=== PATIENT | female | born 1970 | race African-American/Black ===

== ENCOUNTER 2019-04-09 15:45 | Inpatient (IN) | payer OTHER, MEDICAID ==
[~2019-04-09] VITALS: Ht 170.2 cm; Wt 149.8 kg
[2019-04-09] MEDS ORDERED: CARV25TA47 MT (16:11)
[2019-04-09] MEDS ORDERED: LISI-604 MT (16:11)
[2019-04-09] MEDS ORDERED: FURO20TA4 PO (16:11)
[2019-04-09] MEDS ORDERED: WARF-53 PO (16:11)
[2019-04-09] MEDS ORDERED: ATOR20TA65 MT (16:11)
[2019-04-09] MEDS ORDERED: METOPROLOL TARTRATE 5MG/5ML VIAL IV SCH (23:00)
[2019-04-09] MEDS ORDERED: FUROSEMIDE 40MG/4ML VIAL IVP SCH (23:00)
[2019-04-09 23:08] LABS: BASOPHILS % 0.5 % (0.0-2.0); EOSINOPHILS % 5.5 % (0.0-5.0); HEMATOCRIT. 38.7 % (36.0-48.0); HEMOGLOBIN. 11.7 g/dL (12.0-16.0); LYMPHOCYTES % 17.3 % (20.0-50.0); MEAN CORPUSCULAR HEMOGLOBIN 23.1 pg (28.0-32.0); MEAN CORPUSCULAR VOLUME 76.1 fL (81.0-99.0); MEAN PLATELET VOLUME 10.9 fl (7.4-10.4); MONOCYTES % 7.2 % (2.0-8.0); NEUTROPHILS % 69.5 % (40.0-76.0); PLATELET 167 x1000/uL (130-400); RED BLOOD CELL COUNT 5.08 mill/uL (4.2-5.4); RED CELL DISTRIBUTION WIDTH 18.9 % (11.6-14.6)
[2019-04-09 23:14] LABS: CHLORIDE 99 mEq/L (98-107)
[2019-04-09 23:27] LABS: INR 2.7; PROTHROMBIN TIME 26.5 sec (9.6-11.0)
[2019-04-10] MEDS: METOPROLOL TARTRATE 5MG/5ML VIAL IV SCH ×3 (00:56→01:27)
[2019-04-10] MEDS ORDERED: POTASSIUM CHLORIDE 20MEQ TABLET SR PO ONE (04:45)
[2019-04-10 08:00] VITALS: BP 136/70
[2019-04-10] MEDS ORDERED: CLONIDINE 0.1MG TABLET PO PRN (08:30)
[2019-04-10] MEDS ORDERED: WARFARIN SODIUM 5MG TABLET PO SCH (08:30)
[2019-04-10 08:52] VITALS: BP 136/70
[2019-04-10] MEDS: HYDROCODONE/ACETAMINOPHEN 5/325MG TABLET PO PRN (08:57)
[2019-04-10] MEDS: ATORVASTATIN CALCIUM 20MG TABLET PO SCH (08:57)
[2019-04-10] MEDS: LISINOPRIL 20MG TABLET PO SCH (08:57)
[2019-04-10] MEDS ORDERED: HYDROCODONE/ACETAMINOPHEN 5/325MG TABLET PO PRN (11:45)
[2019-04-10] MEDS ORDERED: MAGNESIUM/ALUMINUM HYDROXIDE/SIMETHICONE 30ML UDC PO PRN (11:45)
[2019-04-10] MEDS ORDERED: DIPHENHYDRAMINE 50MG/ML VIAL IV PRN (11:45)
[2019-04-10] MEDS ORDERED: DOCUSATE SODIUM 100MG CAPSULE PO PRN (11:45)
[2019-04-10 12:06] LABS: BASOPHILS % 0.7 % (0.0-2.0); EOSINOPHILS % 5.8 % (0.0-5.0); HEMATOCRIT. 35.5 % (36.0-48.0); HEMOGLOBIN. 10.9 g/dL (12.0-16.0); LYMPHOCYTES % 16.1 % (20.0-50.0); MEAN CORPUSCULAR VOLUME 75.1 fL (81.0-99.0); MEAN PLATELET VOLUME 10.7 fl (7.4-10.4); MONOCYTES % 9.9 % (2.0-8.0); NEUTROPHILS % 67.5 % (40.0-76.0); PLATELET 163 x1000/uL (130-400); RED BLOOD CELL COUNT 4.73 mill/uL (4.2-5.4); RED CELL DISTRIBUTION WIDTH 18.4 % (11.6-14.6)
[2019-04-10 12:10] VITALS: BP 112/55
[2019-04-10 12:20] LABS: INR 2.7; PROTHROMBIN TIME 26.8 sec (9.6-11.0)
[2019-04-10 12:35] LABS: CHLORIDE 103 mEq/L (98-107)
[2019-04-10 12:41] LABS: PHOSPHORUS 3.2 mg/dL (2.5-4.9)
[2019-04-10] MEDS ORDERED: POTASSIUM CHLORIDE INJ 40 MEQ in DEXT 5% WATER 250 ML IV ONE (15:00)
[2019-04-10] MEDS ORDERED: FUROSEMIDE 40MG/4ML VIAL IVP SCH (15:00)
[2019-04-10] MEDS: CARVEDILOL 12.5MG TABLET PO SCH ×2 (15:46→21:43)
[2019-04-10 16:07] VITALS: BP 117/73
[2019-04-10] MEDS: FUROSEMIDE 40MG/4ML VIAL IVP SCH (16:17)
[2019-04-10] MEDS ORDERED: WARFARIN SODIUM 7.5MG TABLET PO NR (18:00)
[2019-04-10 20:00] VITALS: BP 110/62
[2019-04-10] MEDS ORDERED: POTASSIUM CHLORIDE 20MEQ TABLET SR PO NR (21:00)
[2019-04-11] VITALS: BP 100/55
[2019-04-11 00:52] LABS: *AMPHETAMINES SCREEN URINE NEGATIVE (NEGATIVE); *BARBITURATES SCREEN URINE NEGATIVE (NEGATIVE); *BENZODIAZEPINES SCREEN URINE NEGATIVE (NEGATIVE); *COCAINE SCREEN URINE NEGATIVE (NEGATIVE); CANNABINOID URINE SCREEN NEGATIVE (NEGATIVE); METHADONE URINE SCREEN NEGATIVE (NEGATIVE); OPIATES URINE SCREEN PRESUMTIVE POSITIVE (NEGATIVE); PHENCYCLIDINE URINE SCREEN NEGATIVE (NEGATIVE)
[2019-04-11 04:00] VITALS: BP 115/72
[2019-04-11 06:56] LABS: BASOPHILS % 0.7 % (0.0-2.0); EOSINOPHILS % 5.7 % (0.0-5.0); HEMATOCRIT. 35.4 % (36.0-48.0); LYMPHOCYTES % 20.3 % (20.0-50.0); MEAN CORPUSCULAR HEMOGLOBIN 23.4 pg (28.0-32.0); MEAN CORPUSCULAR VOLUME 75.1 fL (81.0-99.0); MEAN PLATELET VOLUME 10.3 fl (7.4-10.4); NEUTROPHILS % 64.3 % (40.0-76.0); PLATELET 145 x1000/uL (130-400); RED BLOOD CELL COUNT 4.71 mill/uL (4.2-5.4); RED CELL DISTRIBUTION WIDTH 18.6 % (11.6-14.6)
[2019-04-11 07:00] LABS: INR 2.8; PROTHROMBIN TIME 27.4 sec (9.6-11.0)
[2019-04-11 07:39] LABS: PHOSPHORUS 3.3 mg/dL (2.5-4.9)
[2019-04-11 08:00] VITALS: BP 111/65
[2019-04-11] MEDS ORDERED: POTASSIUM CHLORIDE 20MEQ TABLET SR PO SCH (09:00)
[2019-04-11] MEDS: FUROSEMIDE 40MG/4ML VIAL IVP SCH ×2 (09:02→17:28)
[2019-04-11] MEDS: ATORVASTATIN CALCIUM 20MG TABLET PO SCH (09:02)
[2019-04-11] MEDS: LISINOPRIL 20MG TABLET PO SCH (09:02)
[2019-04-11] MEDS: CARVEDILOL 12.5MG TABLET PO SCH ×2 (09:02→20:50)
[2019-04-11] MEDS: ACETAMINOPHEN 325MG TABLET PO PRN (09:20)
[2019-04-11 12:00] VITALS: BP 104/76
[2019-04-11] MEDS ORDERED: POTASSIUM CHLORIDE 20MEQ TABLET SR PO NR (12:45)
[2019-04-11] MEDS: DILTIAZEM HCL 60MG TABLET PO SCH ×2 (14:45→22:00)
[2019-04-11 16:00] VITALS: BP 122/56
[2019-04-11] MEDS: POTASSIUM CHLORIDE 20MEQ TABLET SR PO SCH (17:28)
[2019-04-11] MEDS: HYDROCODONE/ACETAMINOPHEN 5/325MG TABLET PO PRN (17:28)
[2019-04-11] MEDS: NEOMY SULF/BACITRAC ZN/POLY OINT 28GM TOP SCH (17:30)
[2019-04-11] MEDS ORDERED: WARFARIN SODIUM 5MG TABLET PO NR (18:00)
[2019-04-11 20:00] VITALS: BP 109/71
[2019-04-12] VITALS: BP 124/76
[2019-04-12 04:00] VITALS: BP 117/81
[2019-04-12] MEDS: DILTIAZEM HCL 60MG TABLET PO SCH ×3 (05:10→18:11)
[2019-04-12 07:49] LABS: BASOPHILS % 0.9 % (0.0-2.0); EOSINOPHILS % 5.6 % (0.0-5.0); HEMATOCRIT. 37.2 % (36.0-48.0); HEMOGLOBIN. 11.6 g/dL (12.0-16.0); LYMPHOCYTES % 17.4 % (20.0-50.0); MEAN CORPUSCULAR HEMOGLOBIN 23.4 pg (28.0-32.0); MEAN PLATELET VOLUME 10.3 fl (7.4-10.4); MONOCYTES % 8.4 % (2.0-8.0); NEUTROPHILS % 67.7 % (40.0-76.0); PLATELET 167 x1000/uL (130-400); RED BLOOD CELL COUNT 4.96 mill/uL (4.2-5.4); RED CELL DISTRIBUTION WIDTH 18.5 % (11.6-14.6)
[2019-04-12 07:50] LABS: INR 3.1; PROTHROMBIN TIME 30.3 sec (9.6-11.0)
[2019-04-12 08:00] VITALS: BP 116/77
[2019-04-12] MEDS: ATORVASTATIN CALCIUM 20MG TABLET PO SCH (09:21)
[2019-04-12] MEDS: POTASSIUM CHLORIDE 20MEQ TABLET SR PO SCH ×2 (09:21→18:11)
[2019-04-12] MEDS: CARVEDILOL 12.5MG TABLET PO SCH ×2 (09:22→20:41)
[2019-04-12] MEDS: FUROSEMIDE 40MG/4ML VIAL IVP SCH ×2 (09:22→18:11)
[2019-04-12] MEDS: LISINOPRIL 20MG TABLET PO SCH (09:23)
[2019-04-12] MEDS: NEOMY SULF/BACITRAC ZN/POLY OINT 28GM TOP SCH (09:31)
[2019-04-12 12:00] VITALS: BP 101/63
[2019-04-12] MEDS: SPIRONOLACTONE 25MG TABLET PO SCH (12:30)
[2019-04-12 16:00] VITALS: BP 120/78
[2019-04-12] MEDS: ACETAMINOPHEN 325MG TABLET PO PRN (18:11)
[2019-04-12 20:00] VITALS: BP 105/48
[2019-04-13] VITALS: BP 117/62
[2019-04-13] MEDS: DILTIAZEM HCL 60MG TABLET PO SCH ×5 (00:04→23:52)
[2019-04-13 04:30] VITALS: BP 105/68
[2019-04-13 07:17] LABS: BASOPHILS % 0.7 % (0.0-2.0); EOSINOPHILS % 5.2 % (0.0-5.0); HEMATOCRIT. 34.5 % (36.0-48.0); HEMOGLOBIN. 10.7 g/dL (12.0-16.0); LYMPHOCYTES % 14.6 % (20.0-50.0); MEAN CORPUSCULAR HEMOGLOBIN 23.3 pg (28.0-32.0); MEAN CORPUSCULAR VOLUME 75.3 fL (81.0-99.0); MEAN PLATELET VOLUME 10.9 fl (7.4-10.4); MONOCYTES % 9.9 % (2.0-8.0); NEUTROPHILS % 69.6 % (40.0-76.0); PLATELET 162 x1000/uL (130-400); RED BLOOD CELL COUNT 4.59 mill/uL (4.2-5.4); RED CELL DISTRIBUTION WIDTH 18.7 % (11.6-14.6)
[2019-04-13 07:24] LABS: CHLORIDE 102 mEq/L (98-107)
[2019-04-13 07:40] LABS: INR 2.8; PROTHROMBIN TIME 27.6 sec (9.6-11.0)
[2019-04-13 08:00] VITALS: BP 118/70
[2019-04-13] MEDS: SPIRONOLACTONE 25MG TABLET PO SCH (08:51)
[2019-04-13] MEDS: LISINOPRIL 20MG TABLET PO SCH (08:51)
[2019-04-13] MEDS: POTASSIUM CHLORIDE 20MEQ TABLET SR PO SCH ×2 (08:51→17:55)
[2019-04-13] MEDS: CARVEDILOL 12.5MG TABLET PO SCH ×2 (08:51→21:00)
[2019-04-13] MEDS: FUROSEMIDE 40MG/4ML VIAL IVP SCH ×2 (08:52→17:55)
[2019-04-13] MEDS: NEOMY SULF/BACITRAC ZN/POLY OINT 28GM TOP SCH (08:52)
[2019-04-13] MEDS: ATORVASTATIN CALCIUM 20MG TABLET PO SCH (08:52)
[2019-04-13 12:00] VITALS: BP 105/68
[2019-04-13] MEDS: ACETAMINOPHEN 325MG TABLET PO PRN (12:09)
[2019-04-13 16:00] VITALS: BP_SYST 104; BP_SYST 106; BP_SYST 109; BP_DIAS 68; BP_DIAS 71; BP_DIAS 78
[2019-04-13] MEDS ORDERED: WARFARIN SODIUM 3MG TABLET PO SCH (18:00)
[2019-04-13 20:27] VITALS: BP 99/62
[2019-04-13] MEDS: HYDROCODONE/ACETAMINOPHEN 5/325MG TABLET PO PRN (23:53)
[2019-04-14] VITALS (11 sets, daily range): BP systolic 96–145; BP diastolic 63–88
[2019-04-14] MEDS: DILTIAZEM HCL 60MG TABLET PO SCH ×3 (05:27→17:41)
[2019-04-14 06:24] LABS: INR 2.3; PROTHROMBIN TIME 22.4 sec (9.6-11.0)
[2019-04-14 06:34] LABS: CHLORIDE 102 mEq/L (98-107)
[2019-04-14 06:51] LABS: BASOPHILS % 0.6 % (0.0-2.0); EOSINOPHILS % 5.7 % (0.0-5.0); HEMATOCRIT. 36.1 % (36.0-48.0); HEMOGLOBIN. 11.2 g/dL (12.0-16.0); LYMPHOCYTES % 18.5 % (20.0-50.0); MEAN CORPUSCULAR HEMOGLOBIN 23.5 pg (28.0-32.0); MEAN CORPUSCULAR VOLUME 75.4 fL (81.0-99.0); MEAN PLATELET VOLUME 10.9 fl (7.4-10.4); MONOCYTES % 8.7 % (2.0-8.0); NEUTROPHILS % 66.5 % (40.0-76.0); PLATELET 166 x1000/uL (130-400); RED BLOOD CELL COUNT 4.79 mill/uL (4.2-5.4); RED CELL DISTRIBUTION WIDTH 18.6 % (11.6-14.6)
[2019-04-14] MEDS: FUROSEMIDE 40MG/4ML VIAL IVP SCH ×2 (08:37→17:42)
[2019-04-14] MEDS: SPIRONOLACTONE 25MG TABLET PO SCH (08:38)
[2019-04-14] MEDS: ATORVASTATIN CALCIUM 20MG TABLET PO SCH (08:38)
[2019-04-14] MEDS: POTASSIUM CHLORIDE 20MEQ TABLET SR PO SCH ×2 (08:38→17:44)
[2019-04-14] MEDS: CARVEDILOL 12.5MG TABLET PO SCH ×2 (08:39→21:49)
[2019-04-14] MEDS: NEOMY SULF/BACITRAC ZN/POLY OINT 28GM TOP SCH (08:39)
[2019-04-14] MEDS: LISINOPRIL 20MG TABLET PO SCH (08:39)
[2019-04-14] MEDS ORDERED: WARFARIN SODIUM 4MG TABLET PO NR (18:00)
[2019-04-14] MEDS: HYDROCODONE/ACETAMINOPHEN 5/325MG TABLET PO PRN (21:50)
[2019-04-15] VITALS (8 sets, daily range): BP systolic 95–122; BP diastolic 55–77
[2019-04-15] MEDS: DILTIAZEM HCL 60MG TABLET PO SCH ×4 (05:24→16:36)
[2019-04-15 07:51] LABS: BASOPHILS % 0.7 % (0.0-2.0); EOSINOPHILS % 5.4 % (0.0-5.0); HEMATOCRIT. 34.9 % (36.0-48.0); HEMOGLOBIN. 10.8 g/dL (12.0-16.0); LYMPHOCYTES % 17.3 % (20.0-50.0); MEAN CORPUSCULAR HEMOGLOBIN 23.3 pg (28.0-32.0); MEAN CORPUSCULAR VOLUME 75.5 fL (81.0-99.0); MEAN PLATELET VOLUME 10.3 fl (7.4-10.4); MONOCYTES % 10.3 % (2.0-8.0); NEUTROPHILS % 66.3 % (40.0-76.0); PLATELET 153 x1000/uL (130-400); RED BLOOD CELL COUNT 4.62 mill/uL (4.2-5.4); RED CELL DISTRIBUTION WIDTH 18.7 % (11.6-14.6)
[2019-04-15 07:58] LABS: PROTHROMBIN TIME 19.7 sec (9.6-11.0)
[2019-04-15 08:00] LABS: CHLORIDE 102 mEq/L (98-107)
[2019-04-15] MEDS: SPIRONOLACTONE 25MG TABLET PO SCH (09:10)
[2019-04-15] MEDS: NEOMY SULF/BACITRAC ZN/POLY OINT 28GM TOP SCH (09:10)
[2019-04-15] MEDS: CARVEDILOL 12.5MG TABLET PO SCH ×2 (09:10→21:57)
[2019-04-15] MEDS: ATORVASTATIN CALCIUM 20MG TABLET PO SCH (09:10)
[2019-04-15] MEDS: FUROSEMIDE 40MG/4ML VIAL IVP SCH ×2 (09:10→16:32)
[2019-04-15] MEDS: POTASSIUM CHLORIDE 20MEQ TABLET SR PO SCH ×2 (09:11→16:32)
[2019-04-15] MEDS: LISINOPRIL 20MG TABLET PO SCH (09:11)
[2019-04-15] MEDS ORDERED: METOLAZONE 2.5MG TABLET PO NR (14:00)
[2019-04-15] MEDS: ACETAMINOPHEN 325MG TABLET PO PRN (17:08)
[2019-04-15] MEDS ORDERED: WARFARIN SODIUM 4MG TABLET PO SCH (18:00)
[2019-04-16] VITALS (9 sets, daily range): BP systolic 95–124; BP diastolic 49–80
[2019-04-16] MEDS: ACETAMINOPHEN 325MG TABLET PO PRN ×3 (02:00→22:52)
[2019-04-16] MEDS: DILTIAZEM HCL 60MG TABLET PO SCH ×4 (02:00→18:27)
[2019-04-16 07:03] LABS: INR 2.1; PROTHROMBIN TIME 20.7 sec (9.6-11.0)
[2019-04-16 07:09] LABS: BASOPHILS % 0.6 % (0.0-2.0); EOSINOPHILS % 6.6 % (0.0-5.0); HEMATOCRIT. 35.1 % (36.0-48.0); HEMOGLOBIN. 11.1 g/dL (12.0-16.0); LYMPHOCYTES % 17.9 % (20.0-50.0); MEAN CORPUSCULAR HEMOGLOBIN 23.7 pg (28.0-32.0); MEAN CORPUSCULAR VOLUME 75.2 fL (81.0-99.0); MEAN PLATELET VOLUME 11.4 fl (7.4-10.4); NEUTROPHILS % 65.9 % (40.0-76.0); PLATELET 184 x1000/uL (130-400); RED BLOOD CELL COUNT 4.67 mill/uL (4.2-5.4); RED CELL DISTRIBUTION WIDTH 18.8 % (11.6-14.6)
[2019-04-16] MEDS ORDERED: METOLAZONE 2.5MG TABLET PO SCH (09:00)
[2019-04-16] MEDS: SPIRONOLACTONE 25MG TABLET PO SCH (09:39)
[2019-04-16] MEDS: LISINOPRIL 20MG TABLET PO SCH (09:39)
[2019-04-16] MEDS: CARVEDILOL 12.5MG TABLET PO SCH ×2 (09:39→21:00)
[2019-04-16] MEDS: NEOMY SULF/BACITRAC ZN/POLY OINT 28GM TOP SCH (09:40)
[2019-04-16] MEDS: POTASSIUM CHLORIDE 20MEQ TABLET SR PO SCH ×2 (09:40→18:18)
[2019-04-16] MEDS: FUROSEMIDE 40MG/4ML VIAL IVP SCH ×2 (09:40→18:18)
[2019-04-16] MEDS: ATORVASTATIN CALCIUM 20MG TABLET PO SCH (09:41)
[2019-04-16] MEDS ORDERED: FURO20TA4 PO (16:14)
[2019-04-16] MEDS ORDERED: WARF-53 PO ×2 (16:14→16:15)
[2019-04-16] MEDS ORDERED: WARF7.5T48 PO (16:14)
[2019-04-16] MEDS ORDERED: WARFARIN SODIUM 4MG TABLET PO SCH (18:00)
[2019-04-16] MEDS: DIGOXIN 500MCG/2ML AMP IV SCH (18:19)
[2019-04-17 00:25] VITALS: BP 95/53
[2019-04-17 04:00] VITALS: BP 125/85
[2019-04-17 06:14] LABS: INR 2.1; PROTHROMBIN TIME 20.6 sec (9.6-11.0)
[2019-04-17 06:21] LABS: BASOPHILS % 0.8 % (0.0-2.0); HEMATOCRIT. 34.5 % (36.0-48.0); HEMOGLOBIN. 10.9 g/dL (12.0-16.0); LYMPHOCYTES % 22.5 % (20.0-50.0); MEAN CORPUSCULAR HEMOGLOBIN 23.4 pg (28.0-32.0); MEAN CORPUSCULAR VOLUME 74.5 fL (81.0-99.0); MEAN PLATELET VOLUME 10.5 fl (7.4-10.4); MONOCYTES % 9.7 % (2.0-8.0); PLATELET 184 x1000/uL (130-400); RED BLOOD CELL COUNT 4.63 mill/uL (4.2-5.4); RED CELL DISTRIBUTION WIDTH 18.3 % (11.6-14.6)
[2019-04-17] MEDS: DILTIAZEM HCL 60MG TABLET PO SCH ×5 (06:21→22:26)
[2019-04-17] MEDS: ACETAMINOPHEN 325MG TABLET PO PRN ×2 (06:27→10:10)
[2019-04-17 08:00] VITALS: BP 97/49
[2019-04-17] MEDS: CARVEDILOL 12.5MG TABLET PO SCH ×3 (09:00→22:43)
[2019-04-17] MEDS: FUROSEMIDE 40MG/4ML VIAL IVP SCH (09:00)
[2019-04-17] MEDS: SPIRONOLACTONE 25MG TABLET PO SCH (09:00)
[2019-04-17] MEDS: NEOMY SULF/BACITRAC ZN/POLY OINT 28GM TOP SCH (10:05)
[2019-04-17] MEDS: ATORVASTATIN CALCIUM 20MG TABLET PO SCH (10:06)
[2019-04-17] MEDS: POTASSIUM CHLORIDE 20MEQ TABLET SR PO SCH ×2 (10:07→17:00)
[2019-04-17 16:00] VITALS: BP 116/69
[2019-04-17] MEDS: DIGOXIN 500MCG/2ML AMP IV SCH (17:53)
[2019-04-17 20:00] VITALS: BP_SYST 135; BP_SYST 92; BP_DIAS 62; BP_DIAS 94
[2019-04-17 20:53] VITALS: BP 107/64
[2019-04-18] VITALS (7 sets, daily range): BP systolic 95–117; BP diastolic 51–71
[2019-04-18] MEDS: DILTIAZEM HCL 60MG TABLET PO SCH (06:44)
[2019-04-18 06:45] LABS: EOSINOPHILS % 8.7 % (0.0-5.0); HEMATOCRIT. 35.8 % (36.0-48.0); HEMOGLOBIN. 11.1 g/dL (12.0-16.0); LYMPHOCYTES % 22.2 % (20.0-50.0); MEAN CORPUSCULAR HEMOGLOBIN 23.3 pg (28.0-32.0); MEAN CORPUSCULAR VOLUME 75.3 fL (81.0-99.0); MEAN PLATELET VOLUME 10.6 fl (7.4-10.4); MONOCYTES % 9.6 % (2.0-8.0); NEUTROPHILS % 58.5 % (40.0-76.0); PLATELET 196 x1000/uL (130-400); RED BLOOD CELL COUNT 4.75 mill/uL (4.2-5.4); RED CELL DISTRIBUTION WIDTH 18.6 % (11.6-14.6)
[2019-04-18 06:58] LABS: INR 1.6
[2019-04-18] MEDS: ATORVASTATIN CALCIUM 20MG TABLET PO SCH (09:00)
[2019-04-18] MEDS: NEOMY SULF/BACITRAC ZN/POLY OINT 28GM TOP SCH (09:00)
[2019-04-18] MEDS: CARVEDILOL 12.5MG TABLET PO SCH (09:00)
[2019-04-18] MEDS: SPIRONOLACTONE 25MG TABLET PO SCH (10:17)
[2019-04-18] MEDS: POTASSIUM CHLORIDE 20MEQ TABLET SR PO SCH (10:19)
[2019-04-18] MEDS ORDERED: DILT60TA35 PO (13:15)
[2019-04-18] MEDS ORDERED: POTA20TA82 PO (13:15)
[2019-04-18] MEDS ORDERED: RIVAROXABAN 20 MG TABLET PO SCH (17:00)
== END 2019-04-18 15:35 | disposition home or self-care (01) | DRG 194 ==
LOC: ER 15:45 → 6WST 04-10 00:16 → EDBEDREQ 04-10 00:18 → EDBEDREQDT 04-10 00:18 → EDBEDREQTM 04-10 00:18 → ENRESERV 04-10 03:58
PROVIDERS: ADMIT Family Medicine Adult Medicine; ATTEND Family Medicine Adult Medicine
DX: I11.0 Hypertensive heart disease with heart failure (principal); E66.01 Morbid (severe) obesity due to excess calories; I08.1 Rheumatic disorders of both mitral and tricuspid valves; I42.9 Cardiomyopathy, unspecified; L97.819 Non-pressure chronic ulcer of other part of right lower leg with unspecified severity; Z79.01 Long term (current) use of anticoagulants; Z68.43 Body mass index [BMI] 50.0-59.9, adult; I48.91 Unspecified atrial fibrillation; R74.0 Nonspecific elevation of levels of transaminase and lactic acid dehydrogenase [LDH]; R26.9 Unspecified abnormalities of gait and mobility; D64.9 Anemia, unspecified; E78.5 Hyperlipidemia, unspecified; E87.6 Hypokalemia; I50.43 Acute on chronic combined systolic (congestive) and diastolic (congestive) heart failure; Z82.49 Family history of ischemic heart disease and other diseases of the circulatory system; Z86.711 Personal history of pulmonary embolism; Z86.718 Personal history of other venous thrombosis and embolism; Z87.891 Personal history of nicotine dependence; Z95.2 Presence of prosthetic heart valve; Z86.79 Personal history of other diseases of the circulatory system
CPT/HCPCS: 36415; 71045; 80048; 80061; 80305; 83735; 83880; 84100; 84443; 84484; 93005; 93306; 93970; 97162; 99285; C1893; J1160; J1940; J3480; J3490; J7040; J7060

== ENCOUNTER 2019-05-24 13:45 | Emergency (ER) | payer MEDICAID ==
[~2019-05-24] VITALS: Ht 167.6 cm; Wt 136.0 kg
[~2019-05-24 13:45] MED LIST: ATOR20TA65 MT; CARV25TA47 MT; DILT60TA35 PO; FURO20TA4 PO; LISI-604 MT; POTA20TA82 PO
[2019-05-24] MEDS ORDERED: ACETAMINOPHEN 500MG TABLET PO ONE (14:45)
[2019-05-24 17:17] VITALS: BP 131/85
== END 2019-05-24 17:20 | disposition home or self-care (01) ==
LOC: ER 13:45
DX: M25.572 Pain in left ankle and joints of left foot (principal); I11.0 Hypertensive heart disease with heart failure; I50.9 Heart failure, unspecified; Z98.890 Other specified postprocedural states; Z79.899 Other long term (current) drug therapy
CPT/HCPCS: 73564; 73610; 73630; 99283; Z7610

== ENCOUNTER 2020-12-22 00:55 | Emergency (ER) | payer MEDICAID ==
[~2020-12-22] VITALS: Ht 167.6 cm; Wt 115.0 kg
[~2020-12-22 00:55] MED LIST changes: -LISI-604 MT; +LISI20TA31 MT
[2020-12-22] MEDS ORDERED: FUROSEMIDE 40MG/4ML VIAL IV ONE (02:15)
[2020-12-22] MEDS ORDERED: NITROGLYCERIN OINT 1GM/INCH UDPKT TD ONE (02:15)
[2020-12-22 02:40] LABS: BASOPHILS % 0.7 % (0.0-2.0); HEMATOCRIT. 36.3 % (36.0-48.0); HEMOGLOBIN. 11.7 g/dL (12.0-16.0); LYMPHOCYTES % 10.9 % (20.0-50.0); MEAN CORPUSCULAR HEMOGLOBIN 26.4 pg (28.0-32.0); MEAN CORPUSCULAR VOLUME 82.4 fL (81.0-99.0); MEAN PLATELET VOLUME 10.1 fl (7.4-10.4); NEUTROPHILS % 77.4 % (40.0-76.0); PLATELET 157 x1000/uL (130-400); RED BLOOD CELL COUNT 4.41 mill/uL (4.2-5.4); RED CELL DISTRIBUTION WIDTH 16.3 % (11.6-14.6)
[2020-12-22 02:43] LABS: CHLORIDE 106 mEq/L (98-107)
[2020-12-22 11:14] VITALS: BP 140/87
== END 2020-12-22 11:35 | disposition short-term general hospital (02) ==
LOC: ER 00:55
DX: R07.89 Other chest pain (principal); I11.0 Hypertensive heart disease with heart failure; I50.9 Heart failure, unspecified; I48.91 Unspecified atrial fibrillation; Z79.899 Other long term (current) drug therapy
CPT/HCPCS: 36415; 71045; 80053; 83880; 84484; 85025; 93005; 93970; 96374; 99285; J1940